=== PATIENT | female | born 1945 | race Caucasian/White ===

== ENCOUNTER 2022-09-13 10:41 | Emergency (ER) | payer MEDICARE ==
[2022-09-13] MEDS ORDERED: Iopamidol 370 76% 100 ML VIAL ONE (11:13)
[2022-09-13 11:50] LABS: SARS-CoV-2 NAA Rapid Test Not Detected (NotDetected)
[2022-09-13 12:28] LABS: Anion Gap 10 mmol/L (10-20); BUN (Urea Nitrogen) 10 mg/dL (9.8-20.1); Calc. Creatinine Clearance 0 mL/min (70-130); Calcium 9.3 mg/dL (7.8-10.44); Carbon Dioxide 26 mmol/L (23-31); Chloride 100 mmol/L (98-107); Estimated GFR 88; Glucose 132 mg/dL (83-110); Potassium 4.2 mmol/L (3.5-5.1); Sodium 132 mmol/L (136-145)
[2022-09-13 12:31] LABS: Hemoglobin 12.3 g/dL (12.0-16.0); Mean Corpuscular HGB CONC 32.7 g/dL (32.0-36.0); Mean Corpuscular Hemoglobin 29.8 pg (27.0-31.0); Mean Corpuscular Volume 91.2 fl (78.0-98.0); Mean Platelet Volume 7.4 fL (7.4-10.4); Platelet Count 204 10x3/uL (130-400); RBC Distribution Width 15.6 % (11.5-14.5); Red Blood Cell (RBC) Count 4.14 mill/uL (4.20-5.40); White Blood Cell (WBC) Count 5.2 10x3/uL (4.8-10.8)
[2022-09-13 12:43] LABS: Band 2 % (5-11); Eosinophils 9 % (0-10); Lymphocytes 9 % (21-51); MDiff Complete? YES; Monocytes 11 % (0-10); Neutrophil 69 % (42-75)
[2022-09-13] MEDS ORDERED: Doxycycline 100 MG CAP ONE (13:51)
== END 2022-09-13 13:55 | disposition home or self-care (01) ==
LOC: EDBD 10:41 → BURERS 10:41
DX: J18.9 Pneumonia, unspecified organism (principal); E11.9 Type 2 diabetes mellitus without complications; E03.9 Hypothyroidism, unspecified; K21.9 Gastro-esophageal reflux disease without esophagitis; E78.5 Hyperlipidemia, unspecified; Z79.4 Long term (current) use of insulin; Z20.822 Contact with and (suspected) exposure to COVID-19; Z79.899 Other long term (current) drug therapy; Z79.01 Long term (current) use of anticoagulants
CPT/HCPCS: 71045; 71275; 80048; 85025; 87804 ×2; U0002; 36415; Q9967

== ENCOUNTER 2022-10-04 12:53 | Emergency (ER) | payer MEDICARE ==
[2022-10-04] MEDS ORDERED: traMADol HCl 50 MG TAB ONE (13:38)
[2022-10-04] MEDS ORDERED: Ondansetron PF 4 MG/2 ML Vial ONE (13:38)
[2022-10-04] MEDS ORDERED: Ondansetron ODT 4 MG TAB ONE (13:39)
== END 2022-10-04 18:13 | disposition home or self-care (01) ==
LOC: BURERS 12:53
DX: S32.019A Unspecified fracture of first lumbar vertebra, initial encounter for closed fracture (principal); I95.9 Hypotension, unspecified; E11.9 Type 2 diabetes mellitus without complications; D64.9 Anemia, unspecified; Z79.4 Long term (current) use of insulin; E03.9 Hypothyroidism, unspecified; K21.9 Gastro-esophageal reflux disease without esophagitis; E78.5 Hyperlipidemia, unspecified; I48.91 Unspecified atrial fibrillation; Z79.899 Other long term (current) drug therapy; Z79.01 Long term (current) use of anticoagulants; W19.XXXA Unspecified fall, initial encounter
CPT/HCPCS: 72131; 72192; J2405; Q0162